=== PATIENT | female | born 1950 | race Caucasian/White ===

== ENCOUNTER 2021-03-12 01:18 | Outpatient (CLI) | payer MEDICARE, BC, SELFPAY ==
[2021-03-12 12:17] LABS: Source Nasal/Nares
[2021-03-12 15:22] LABS: COVID-19 PCR Negative (Negative)
== END 2021-03-12 01:19 | disposition home or self-care (01) ==
LOC: LBO 01:18
PROVIDERS: PCP Nurse Practitioner Family; Visit Provider Podiatrist
DX: Z20.822 Contact with and (suspected) exposure to COVID-19 (principal); Z01.818 Encounter for other preprocedural examination
CPT/HCPCS: 87635

== ENCOUNTER 2021-03-14 07:25 | Day surgery (SDC) | payer MEDICARE, BC, SELFPAY ==
[2021-03-12 15:02] VITALS: BP 199/77; PULSE 69; RESP 20; TEMP 37; O2SAT 99
--- NOTE | 2021-03-13 20:00 | W.PM.HP.N ---
Date of service: 03/13/21 Time of Service: 20:00 History of Present Illness History of Present Illness Chief Complaint: painful right bunion deformity Narrative: 70 YO female with long standing right bunion deformity that has reached the point that pain is interfering with shoe gear, ambulation and daily activities. Non operative treatments have failed to provide relief of symptoms and she is seeking surgical repair. [facility] Medical History Actinic keratosis Allergic rhinitis Cervical radiculopathy Chronic pansinusitis DJD (degenerative joint disease) Dupuytren's disease of palm Bev type IIa hyperlipoproteinemia GERD (gastroesophageal reflux disease) Hemorrhoids History of conjunctivitis History of nasal polyp Hyperlipidemia Hypertension Intrinsic asthma Melanocytic nevus Multiple congenital cysts of kidney Pain of left hip joint Polyp of vocal cord and larynx Sciatica Shoulder joint pain Spondylosis Surgical History History of arthrodesis History of arthroscopic knee surgery History of back surgery History of colonoscopy History of sinus surgery Hx of shoulder surgery [place] teeth extracted Social History Smoking/Tobacco Use Status: Never Smoking risk assessment performed?: Yes Alcohol Intake: current Alcohol Intake frequency: holidays/special occasions only Drug use: Never Substance use type: does not use Do you feel safe at home: Yes Do you feel safe in your relationship?: Yes Meds Allergies and Home Medications Allergies Allergy/AdvReac Type Severity Reaction Status Date / Time gabapentin Allergy Unknown Verified 03/12/21 15:08 Home Medications Medication Instructions Recorded Confirmed Type acetaminophen 1,000 mg PO Q6H PRN 03/10/21 03/10/21 History atorvastatin 20 mg PO QHS 03/10/21 03/10/21 History calcium carbonate-vitamin D3 2 tab PO DAILY 03/10/21 03/10/21 History [Calcium 500 + D] magnesium 250 mg PO DAILY 03/10/21 03/12/21 History mometasone-formoterol [Dulera] 1 puff INHALATION DAILY 03/10/21 03/10/21 History montelukast 10 mg PO HS 03/10/21 03/12/21 History multivitamin 1 tab PO DAILY 03/10/21 03/10/21 History mv,Ca,ir,Uv-ZI-wux-gel-aura-PAB 3 cap PO DAILY 03/10/21 03/10/21 History [Body, Hair, Skin and Nails] omega 8-qie-enn-fish oil [Fish Oil] 1 cap PO DAILY 03/10/21 03/10/21 History scopolamine base 1 patch TRANSDERMAL Q3D PRN 03/10/21 03/10/21 History Exam Narrative Exam Narrative: 70 YO female in NAD, pleasant and makes good eye contact. Heads normo cephalic Eyes PERRLA Hearing is adequate Uvula is mid line Heart had RRR, I detected no murmurs Lung whitman are clear Abdomen is soft, BS x 4 Peripheral pulses are palpable, CFT< 3 sec, no edema, feet are warm to the touch Muscle gps are 5/5 Skeletal exam reveals a prominent HAV right deformity. ROM is free of crepitance, flexible. Pam articular tenderness noted on palpation. Neurological exam: wnl Impressions: Right HAV deformity Plan: Yue is being brought to the OR for surgical repair of the right bunion deformity. Potential risks and complications of surgery were discussed including pain, scarring, infection, over or under correction of the deformity, malunion, delayed union or nonunion, hardware pain or failure and the potential for revision surgery. All questions were answered, informed consent was obtained.
[2021-03-14] MEDS: Lactated Ringers 1,000 ML 80 ML IV (07:57)
[2021-03-14 08:04] VITALS: BP 199/77; PULSE 69; RESP 20; TEMP 37; O2SAT 99
--- NOTE | 2021-03-14 09:36 | W.ANESPRE ---
General Info Date of Service Date Performed: 03/14/21 Height: 53 ft Weight: 53.5 kg Body Mass Index (BMI): 0.1 Surgical Procedure: Operation Date: 03/14/21 08:40 Proposed Procedures Side Surgeon p Bunionectomy w/osteotomy Right Right Eamon S MICHELLE Garrison Meds Allergies and Home Medications Allergies Allergy/AdvReac Type Severity Reaction Status Date / Time gabapentin Allergy Unknown Verified 03/12/21 15:08 Home Medication Medication Instructions Recorded acetaminophen 1,000 mg PO Q6H PRN 03/10/21 atorvastatin 20 mg PO QHS 03/10/21 calcium carbonate-vitamin D3 2 tab PO DAILY 03/10/21 [Calcium 500 + D] magnesium 250 mg PO DAILY 03/10/21 mometasone-formoterol [Dulera] 1 puff INHALATION DAILY 03/10/21 montelukast 10 mg PO HS 03/10/21 multivitamin 1 tab PO DAILY 03/10/21 mv,Ca,ir,Ms-XU-oie-gel-aura-PAB 3 cap PO DAILY 03/10/21 [Body, Hair, Skin and Nails] omega 6-yxy-dkt-fish oil [Fish Oil] 1 cap PO DAILY 03/10/21 scopolamine base 1 patch TRANSDERMAL Q3D PRN 03/10/21 Current Visit Medications: Current Medications Generic Name Dose Route Start Last Admin Trade Name Freq PRN Reason Stop Dose Admin Sodium Chloride 500 mls @ 0 mls/hr 03/14/21 06:00 Saline 500ml Bag IV PRN PRN As Directed Cefazolin Sodium/Dextrose 1 gm in 50 mls @ 100 mls/hr 03/14/21 06:00 Ancef Duplex IVPB PREOP JOHAN Ringer's Solution 1,000 mls @ 80 mls/hr 03/14/21 06:00 03/14/21 07:57 IV 03/17/21 23:59 80 mls/hr INFUSION JOHAN Administration IV Miscellaneous Supplies 1 each 03/14/21 06:00 Iv Access IV DIRECTED JOHAN IV Miscellaneous Supplies 1 each 03/14/21 06:00 Iv Access IV 03/17/21 23:59 DIRECTED JOHAN Povidone Iodine 0 ml 03/14/21 06:00 Povidone-Iodine Soln. 118 Ml Btl TP DIRECTED JOHAN Sodium Chloride 0 ml 03/14/21 06:00 Normal Saline Flush 10 Ml Syr IV 03/17/21 23:59 PRN PRN Sodium Chloride 0 ml 03/14/21 06:00 Normal Saline 10 Ml Vial IJ 03/17/21 23:59 DIRECTED PRN Sterile Water 0 ml 03/14/21 06:00 Water,Injection,Sterile 10 Ml Vial IJ 03/17/21 23:59 DIRECTED PRN PFSH Medical History Medical History Actinic keratosis Allergic rhinitis Cervical radiculopathy Chronic pansinusitis DJD (degenerative joint disease) Dupuytren's disease of palm Bev type IIa hyperlipoproteinemia GERD (gastroesophageal reflux disease) Hemorrhoids History of conjunctivitis History of nasal polyp Hyperlipidemia Hypertension Intrinsic asthma Melanocytic nevus Multiple congenital cysts of kidney Pain of left hip joint Polyp of vocal cord and larynx Sciatica Shoulder joint pain Spondylosis Medical History Comments:: Earing on right ear, unabkle to remove. Earing Taped. Surgical History Surgical History History of arthrodesis History of arthroscopic knee surgery History of back surgery History of colonoscopy History of sinus surgery Hx of shoulder surgery [place] teeth extracted Tobacco Smoking/Tobacco Use Status: Never Alcohol Alcohol Intake: current Alcohol intake frequency: holidays/special occasions only Alcohol type: wine Substance Use Substance use: Never Substance use type: does not use Vital Signs and Lab Results Vital Signs Most Recent Vital Signs in EMR: Most Recent Vital Signs Temp Pulse Resp BP Pulse Ox 37 C 69 20 199/77 H 99 03/14/21 08:04 03/14/21 08:04 03/14/21 08:04 03/14/21 08:04 03/14/21 08:04 Lab Results Blood Type / Crossmatch: No Data to Display Complete Blood Count: No Data to Display Complete Metabolic Panel: No Data to Display Liver Function Panel: No Data to Display Coagulation Panel: No Data to Display Cardiac Panel: No Data to Display Arterial Blood Gas: No Data to Display Venous Blood Gas: No Data to Display Pancreas Panel: No Data to Display Thyroid Panel: No Data to Display Infectious Disease: Coronavirus (COVID-19)(PCR) Negative (Negative) 03/12/21 10:42 03/12/21 Coronavirus 2019 Source Nasal/Nares 03/12/21 10:42 03/12/21 Blood Cultures: No Data to Display Toxicology Panel: No Data to Display Anesthesia Assessment and Plan Anesthesia History Personal History: No History of Anesthesia Complications Family History: No Family History of Anesthesia Complications Exercise Tolerance Exercise Tolerance: Metabolic Equivalents>4 Pertinent Negatives Pertinent Negatives: No Symptoms of GERD, No Major Cardiovascular Symptoms or Complaints, No Major Pulmonary Symptoms or Complaints and No History of CVA/TIA Cardiac & Pulmonary Exam Cardiac Exam: Normal S1/S2 Heart Sounds Pulmonary Exam: Clear Bilateral Breath Sounds Implantable Cardiac Device Does patient have a Pacemaker or an ICD?: No Airway Exam Known Difficult Airway: No Mallampati Class: 1 Mouth Opening: Normal (> 3cm) Thyromental Distance: Greater than 3 cm Neck Range of Motion: Full ROM Neck Circumference: Normal Teeth Condition: Normal Dentition ASA Classification ASA Score: ASA 2 Emergency Case?: No NPO Status NPO Status: NPO Clears >2 hours, Solids >8 hours Anesthesia Plan Resuscitation Status: Full Code Anesthesia Technique: General Anesthesia Airway Planned: Natural Airway Monitors Used: Standard Monitors
[2021-03-14] MEDS: ceFAZolin 1 GM/50 ML BAG IVPB (10:02)
[2021-03-14] MEDS: Bupivacaine 0.5% Pres-Free 30 ML VIAL (10:10)
[2021-03-14] MEDS: Lidocaine 1% Multi-Dose 50 ML VIAL (10:10)
[2021-03-14] MEDS: Dexamethasone 4 MG/ML VIAL (10:57)
[2021-03-14 11:21] VITALS: BP 169/88; PULSE 83; RESP 18; TEMP 36.2; O2SAT 97
--- NOTE | 2021-03-14 11:21 | W.PM.DSUDISC ---
Discharge Plan Disposition Patient Disposition: HOME Condition: Good Discharge Details Reason For Visit: Bunionectomy right foot Attending Provider: Eamon Garrison Primary Care Provider: Bernice Suh Home Meds and New Rx's Prescriptions: New oxycodone-acetaminophen 5-325 mg tablet 1 tab PO Q6H PRN (Reason: post op pain) Qty: 9 RF: 0 Continued montelukast 10 mg Tablet 10 mg PO HS RF: 0 Dulera 100-5 mcg/actuation Hfa Aerosol Inhaler 1 puff INHALATION DAILY RF: 0 atorvastatin 20 mg Tablet 20 mg PO QHS RF: 0 multivitamin Tablet 1 tab PO DAILY RF: 0 acetaminophen 500 mg Tablet 1,000 mg PO Q6H PRNRF: 0 magnesium 250 mg Tablet 250 mg PO DAILY RF: 0 scopolamine base 1 mg over 3 days Patch 3 Day 1 patch TRANSDERMAL Q3D PRNRF: 0 calcium carbonate-vitamin D3 [Calcium 500 + D] 500 mg-10 mcg (400 unit) Tablet 2 tab PO DAILY RF: 0 Body, Hair, Skin and Nails 3-133 mg-mcg Capsule 3 cap PO DAILY RF: 0 omega 3-njc-fqf-fish oil [Fish Oil] 1,000 mg (120 mg-180 mg) Capsule 1 cap PO DAILY RF: 0 Discharge Instructions Activity:: Elevate Remove Dressings/Wound Care:: Do Not Remove Shower/Bathe:: Cover Diet:: Normal Diet Discharge Orders Discharge Orders: Discharge Order (Routine); Ordered 03/14/21 Ordered By: Eamon Garrison DS: Diagnosis Discharge Diagnosis (1) Hallux valgus of right foot: Status: Acute
--- NOTE | 2021-03-14 11:28 | ROE_ITS ---
Date of service: 03/14/21 Time of Service: :28 Operative Note Operative Note DATE OF PROCEDURE: 03/14/21 PRE-OP DIAGNOSIS: HAV right POST-OP DIAGNOSIS: same PROCEDURE: Scarf Bunionectomy right foot SURGEON: Eamon Garrison ANESTHESIA TYPE: General LMA/ETT Refer to Anesthesia Record ESTIMATED BLOOD LOSS: 1 TOURNIQUET TIME: 60 COMPLICATIONS: None Patient was transported to: same day Patient's condition: stable Implants: synthes 2.7mm cortical screws x 2 Indications: 70 YO female with increasing pain associated with shoe gear, ambulation now interfering with daily activity. Non operative treatments failed to provide relief of symptoms. Procedure Description: Yue was brought to the operative suite placed in the supine position with the right foot prepped and draped in the usual sterile podiatric fashion. Anesthesia being obtained attention was directed to the right foot. Timeout was performed for safe surgery by protocol. The right foot was exsanguinated well-padded ankle tourniquet inflated 250 mmHg. Attention was directed to the first MPJ where a 5 cm dorsal medial incision was made parallel to the EHL tendon. The incision was deepened in controlled depth fashion with hemostasis acquired with electrocautery as needed. Dissection was carried down to the joint capsule. Marked lateral contracture of the joint was appreciated. A lateral capsulotomy was performed, the adductor tendon release, and the fibular sesamoid was noted to be sitting on the lateral wall of the first metatarsal head. Based on apposition and the inability to reduce it I removed the fibular sesamoid. Attention was now directed medially over the joint where an inverted L capsulotomy was performed. The capsule was reflected the first metatarsal head was brought up into the surgical wound large medial hypertrophy was appreciated but the majority of the articular surface appeared viable. With power instrumentation the medial hyperostosis was resected. With power instrumentation a scarf offset osteotomy was performed. The head was trans located laterally impacted and fixated with two2.7 cortical screws. Adequate correction of the deformity appreciated. The medial shelf was resected with power instrumentation in the first metatarsal head further reduced dorsal medially. Copious irrigation was performed. The joint capsule was repaired utilizing simple interrupted suture 3-0 Vicryl with a medial capsulorrhaphy being performed. The subcutaneous layer was brought together with 4-0 Vicryl in a running subcuticular stitch of 4-0 Monocryl used to coapt the skin. Mastisol and half-inch Steri-Strips applied. 4 mg dexamethasone phosphate was deeply infused into the wound. Xeroform gauze fluff compression dressings were applied. Tourniquet was released at 60 minutes with vascularity returning immediately to all toes. Yue left the OR with vital signs stable vascular status intact sharp and sponge counts were correct. Should be followed by myself in the office next week. Dictated with Mireya naturally speaking. Not reviewed for accuracy
--- NOTE | 2021-03-14 11:30 | W.ANESPOSTOP ---
Postoperative Evaluation Date, Time and Location Date Performed: 03/14/21 Time Performed: 11:30 Patient Location: Day Surgery Unit Vital Signs Most Recent Imported Vital Signs: Most Recent Vital Signs Temp Pulse Resp BP Pulse Ox 37 C 69 20 199/77 H 99 03/14/21 08:04 03/14/21 08:04 03/14/21 08:04 03/14/21 08:04 03/14/21 08:04 Most Recent Manually Entered Vital Signs: Adult Blood Pressure: 169/88 Heart Rate: 78 Respirations: 12 Oxygen Saturation (%): 100 Temperature (C): 36.6 C Pain Score (0-10 Scale): 0 Pain Score Most Recent Pain Score: Most Recent Pain Score Pain Level 0 03/14/21 08:04 Assessment Mental Status: Awake (Alert & Oriented to Patient Baseline) Airway and Respiratory Function: Patent airway with normal (patient baseline) respiratory exam Cardiovascular Function: Hemodynamically Stable Hydration Status: Adequately Hydrated Nausea & Vomiting: No Nausea or Vomiting Pain: Pt. Denies Any Pain Peripheral Nerve Block: Patient did not receive a nerve block
[2021-03-14 11:31] VITALS: BP 169/88; PULSE 78; RESP 12; TEMPC 36.6; O2SAT 100
[2021-03-14 11:53] VITALS: BP 192/77; PULSE 64; RESP 16; TEMP 36.3; O2SAT 98
== END 2021-03-14 12:40 | disposition home or self-care (01) ==
PROVIDERS: PCP Nurse Practitioner Family; Visit Provider Podiatrist
PROC: (CPT 28292; principal; 2021-03-14 08:30)
DX: M20.11 Hallux valgus (acquired), right foot (principal); K21.9 Gastro-esophageal reflux disease without esophagitis; I10 Essential (primary) hypertension; E78.5 Hyperlipidemia, unspecified
CPT/HCPCS: 28296; J0690; J1100; J2001; J2250; J2704

== ENCOUNTER → 2022-12-22 09:36 | Outpatient (BNVA) | payer MEDICARE, BC, SELFPAY | PROVIDERS: PCP Nurse Practitioner Family; Referring Provider Nurse Practitioner Family; Visit Provider Physician Assistant Surgical | DX: J45.909 Unspecified asthma, uncomplicated (principal); Z79.899 Other long term (current) drug therapy; Z79.51 Long term (current) use of inhaled steroids | CPT/HCPCS: 99213 ==

== ENCOUNTER → 2023-04-22 09:09 | Outpatient (CLI) | payer MEDICARE, BC, SELFPAY ==
--- NOTE | 2023-04-22 10:06 | DI.RAD_ITS ---
Exam(s) XR FOOT RT COMPLETE EXAM: XR FOOT RT COMPLETE CLINICAL HISTORY: comparison xray, 2021 non-union following surgery. [id number]. TECHNIQUE: 2D digital imaging was performed. Three views. COMPARISON: CR XR FOOT LT COMPLETE from 04/22/2023 FINDINGS: BONES: No acute fracture is present. No bony destructive lesion is seen. First metatarsal osteotomy with screws in place. JOINTS: No dislocation present. Minimal degenerative changes at 1st MTP joint. No significant hallu x valgus. Plantar arch is maintained. Hammertoe deformities. SOFT TISSUE: Normal. IMPRESSION: Postsurgical changes of the 1st metatarsal. Hammertoe deformities. DATA REPOSITORY: RADIATION DOSE DELIVERED:
--- NOTE | 2023-04-22 10:07 | DI.RAD_ITS ---
Exam(s) XR FOOT LT COMPLETE EXAM: XR FOOT LT COMPLETE CLINICAL HISTORY: L painful bunion [id number]. TECHNIQUE: 2D digital imaging was performed. Three views. COMPARISON: No exams were available for comparison FINDINGS: BONES: No acute fracture is present. No bony destructive lesion is seen. JOINTS: No dislocation present. First metatarsal varus and hallux valgus. Mild degenerative change s at the 1st MTP joint. Hammertoe deformity of the 2nd toe. SOFT TISSUE: Mild swelling adjacent to 1st metatarsal head. Shows mild swelling adjacent to 5th meta tarsal head. IMPRESSION: Hallux valgus. Hammertoe deformity of the 2nd toe. DATA REPOSITORY: RADIATION DOSE DELIVERED:
== END ==
PROVIDERS: PCP Nurse Practitioner Family; Visit Provider Podiatrist
DX: M20.41 Other hammer toe(s) (acquired), right foot (principal); Z98.890 Other specified postprocedural states; M20.42 Other hammer toe(s) (acquired), left foot
CPT/HCPCS: 73630

== ENCOUNTER → 2024-01-05 10:09 | Outpatient (BNVA) | payer MEDICARE, BC, SELFPAY | PROVIDERS: PCP Nurse Practitioner Family; Referring Provider Nurse Practitioner Family; Visit Provider Physician Assistant Surgical | DX: J45.909 Unspecified asthma, uncomplicated (principal) | CPT/HCPCS: 99214 ==

== ENCOUNTER → 2024-02-21 09:42 | Outpatient (BNVA) | payer MEDICARE, BC, SELFPAY | PROVIDERS: PCP Nurse Practitioner Family; Referring Provider Nurse Practitioner Family; Visit Provider Podiatrist | DX: M79.672 Pain in left foot (principal); M21.612 Bunion of left foot; M20.42 Other hammer toe(s) (acquired), left foot | CPT/HCPCS: 99215 ==

== ENCOUNTER 2024-06-20 00:57 | Outpatient (CLI) | payer MEDICARE, BC, SELFPAY ==
[2024-06-20] MEDS: Levalbuterol HFA 15 GM INH 4 PUFF IH (11:30)
[2024-06-20] MEDS: Inhaler, Assist Device 1 EACH MC (11:30)
--- NOTE | 2024-06-26 13:29 | W.PFT ---
Date of service: 06/20/24 Time of Service: 09:54 Pulmonary Function Test Result Indications: Asthma Interpretation Spirometry: There is no airflow limitation. No significant bronchodilator response. Lung Volumes: Normal lung volumes Diffusion Capacity: Normal diffusion Airway Pressure: Normal airways resistance Impression Normal pulmonary function testing Clinical Correlation therefore is recommended.
== END 2024-06-20 00:58 | disposition home or self-care (01) ==
LOC: RT 00:58
PROVIDERS: PCP Nurse Practitioner Family; Visit Provider Student in an Organized Health Care Education/Training Program
DX: J45.909 Unspecified asthma, uncomplicated (principal)
CPT/HCPCS: 94060; 94726; 94729

== ENCOUNTER → 2025-01-04 10:02 | Outpatient (BNVA) | payer MEDICARE, BC, SELFPAY | PROVIDERS: PCP Nurse Practitioner Family; Referring Provider Nurse Practitioner Family; Visit Provider Physician Assistant Surgical | DX: J45.909 Unspecified asthma, uncomplicated (principal) | CPT/HCPCS: 99214 ==